=== PATIENT | male | born 1965 | race Caucasian/White ===

== ENCOUNTER 2016-09-27 23:28 | Emergency (ER) | payer SELFPAY ==
[~2016-09-27] VITALS: Ht 170.2 cm; Wt 80.0 kg
[2016-09-27] MEDS ORDERED: SODIUM CHLORIDE 0.9% 1,000 ML IV ONE (23:52)
[2016-09-27] MEDS ORDERED: FAMOTIDINE 20 MG/2 ML ONE (23:59)
[2016-09-27] MEDS ORDERED: ONDANSETRON 2MG/ML, 2ML ONE (23:59)
[2016-09-28] MEDS ORDERED: SODIUM CHLORIDE FLUSH 10ML SYR IVF ONE
[2016-09-28] MEDS ORDERED: SODIUM CHLORIDE 0.9% 1,000ML IVBOLUS ONE
[2016-09-28] MEDS ORDERED: ONDANSETRON 2MG/ML, 2ML IVPush ONE
[2016-09-28] MEDS ORDERED: FAMOTIDINE 20 MG/2 ML IVP ONE
[2016-09-28 00:55] LABS: HEMOGLOBIN 12.3 g/dL (13.7-18.0)
[2016-09-28 01:05] LABS: BLOOD UREA NITROGEN 24 mg/dL (7-18)
[2016-09-28 01:08] LABS: ASPARTATE AMINO TRANSFERASE 28 U/L (15-37)
[2016-09-28 01:41] LABS: DAU SCREEN DISCLAIMER
[2016-09-28 03:30] VITALS: BP 165/100
== END 2016-09-28 03:32 | disposition home or self-care (01) ==
LOC: ED 23:59
DX: K52.9 Noninfective gastroenteritis and colitis, unspecified (principal); R53.83 Other fatigue; R40.1 Stupor; F15.10 Other stimulant abuse, uncomplicated; E11.9 Type 2 diabetes mellitus without complications; I10 Essential (primary) hypertension; Z88.0 Allergy status to penicillin
CPT/HCPCS: 36415; 70450; 74022; 80053; 80307; 81001; 83605; 83690; 84439; 84443; 84484; 85025; 87086; 93005; 96361; 96374; 96375; 99285; J2405; J7030; S0028